=== PATIENT | female | born 1955 | race Caucasian/White ===

== ENCOUNTER → 2022-04-01 | Outpatient (CLI) | payer MEDICARE ==
[2022-04-01 22:47] LABS: Basophils # (A) 0.03 X 10*3/uL (0.00-0.10); Basophils % (A) 0.6 %; Eosinophils # (A) 0.01 X 10*3/uL (0.04-0.35); Eosinophils % (A) 0.2 %; HCT 40.9 % (37.2-46.3); HGB 12.6 g/dL (12.0-15.0); Immature Grans, Automated 0.2 %; Lymphocytes # (A) 1.12 X 10*3/uL (0.90-5.00); Lymphocytes % (A) 21.4 %; MCHC 30.8 g/dL (32.0-37.0); Mean Platelet Volume 11.3 fL (9.5-12.2); Monocytes # (A) 0.34 X 10*3/uL (0.20-1.00); Monocytes % (A) 6.5 %; NRBC Per 100 WBC 0 /100 WBCS (0.0-0.0); Neutrophils # (A) 3.72 X 10*3/uL (1.80-7.70); Neutrophils % (A) 71.1 %; Platelet Count 301 X 10*3/uL (140-440); RBC 4.35 X 10*6/uL (4.10-5.20); RDW 13.2 % (11.5-14.5); WBC 5.23 X 10*3/uL (4.50-10.00)
[2022-04-01 23:01] LABS: African American GFR (CKD) 83.6 (60.0-200.0); Non-African American GFR(CKD) 72.1 (60.0-200.0)
[2022-04-02 01:01] LABS: DNA Double-Stranded POSITIVE (NEGATIVE)
== END | disposition home or self-care (01) ==
LOC: LABWHC1 13:58
PROVIDERS: ATTEND Internal Medicine Rheumatology
DX: Z51.81 Encounter for therapeutic drug level monitoring (principal); M32.9 Systemic lupus erythematosus, unspecified
CPT/HCPCS: 36415; 82565; 85025; 86160; 86225